=== PATIENT | male | born 1970 | race Caucasian/White ===

== ENCOUNTER 2017-06-16 00:13 | Emergency (ER) | payer MEDICAID, MEDICARE, OTHER ==
[~2017-06-16] VITALS: Ht 182.9 cm; Wt 80.7 kg
[~2017-06-16 00:13] MED LIST: ALPRAZOLAM0.25 MG ORAL; ATRIPLA TABLET1 EAC1 ORAL; BENTYL10 MG ORAL; IMODIUM2 MG ORAL
[2017-06-16 00:30] VITALS: BP 150/89
[2017-06-16] MEDS ORDERED: Cephalexin 500mg cap ORAL ONE (01:00)
[2017-06-16] MEDS ORDERED: KEFLEX500 MG ORAL (01:25)
[2017-06-16 01:30] VITALS: BP 150/89
--- NOTE | 2017-06-16 02:51 | Emergency Room Report ---
History of Present Illness General Chief Complaint: Pain Source: Patient Present Illness HPI 46-year-old male presents ED for evaluation. Patient complaining of an infection to his right leg. Has been there since Monday. It was prescribed antibiotics by his PMD on Monday. Was prescribed Bactrim. States that he is not sure if it the medication is helping. Pain is throbbing, 8 out of 10, nonradiating. Feels chills. Afebrile in triage. Denies any discharge. No other aggravating relieving factors. Denies any other associated symptoms Allergies: Coded Allergies: No Known Allergies (Unverified , 07/05/14) Patient History Past Medical History: none Past Surgical History: none Pertinent Family History: none Social History: Denies: smoking, alcohol use, drug use Immunizations: UTD Reviewed Nursing Documentation: PMH: Agreed; PSxH: Agreed Review of Systems All Other Systems: negative except mentioned in HPI Physical Exam Vital Signs Date Time Temp Pulse Resp B/P (MAP) Pulse Ox O2 Delivery O2 Flow Rate FiO2 06/16/17 00:16 98.2 116 18 158/95 96 Room Air 98.2 Sp02 EP Interpretation: reviewed, normal General Appearance: no apparent distress, alert, GCS 15, non-toxic Head: normocephalic Eyes: bilateral eye normal inspection, bilateral eye PERRL ENT: normal ENT inspection Neck: normal inspection Respiratory: normal inspection Cardiovascular #1: normal inspection Gastrointestinal: normal inspection Rectal: deferred Genitourinary: no CVA tenderness Musculoskeletal: normal inspection Neurologic: alert, oriented x3, responsive, motor strength/tone normal, sensory intact, speech normal Psychiatric: judgement/insight normal, memory normal, mood/affect normal, no suicidal/homicidal ideation Skin: other - 3x3cm area of induration/erythema to R calf. no fluctuance or discharge Lymphatic: no adenopathy Medical Decision Making Diagnostic Impression: Primary Impression: Cellulitis of calf ER Course Hospital Course 46-year-old male presents ED complaining of pain and swelling to right calf. Differential diagnoses include: Cellulitis, dermatitis, insect bite, abscess Clinical course Patient placed on stretcher. After initial history, physical exam reveals a male in no acute distress. On exam there is a site for mild erythema and induration to the right calf. There is no fluctuance. Clinically concerning for cellulitis. However patient appears nontoxic, afebrile. Patient currently on day 2 of Bactrim. I explained to patient that it is too early for antibiotics to take effect. However I will prescribe Keflex in addition. Recommend close follow-up with PMD and return to ED if symptoms should worsen given keflex in ED Diagnosis - cellulitis of calf stable and discharged to home with prescription for Keflex. Instructed to followup with PMD. Instructed return to ED if symptoms recur or worsen Last Vital Signs Date Time Temp Pulse Resp B/P (MAP) Pulse Ox O2 Delivery O2 Flow Rate FiO2 06/16/17 01:30 98.2 98 14 150/89 98 Room Air Status: improved Disposition: HOME, SELF-CARE Condition: Stable Scripts Cephalexin* (KEFLEX*) 500 Mg Capsule 500 MG ORAL Q6H, #28 CAP 0 Refills Prov: Raymond Gifford MD 06/16/17 Patient Instructions: Cellulitis, [id number] Raymond Gifford MD Jun 16, 2017 02:51
== END 2017-06-16 01:30 | disposition home or self-care (01) ==
LOC: EMR 00:52
DX: L03.115 Cellulitis of right lower limb (principal)
CPT/HCPCS: 99283